=== PATIENT | male | born 1980 ===

== ENCOUNTER 2017-01-11 18:29 | Emergency (ER) | payer BC ==
[2017-01-11 18:44] VITALS: BP 130/90; PULSE 87; RESP 16; TEMP 98; O2SAT 98; BMI 28.8
--- NOTE | 2017-01-11 18:55 | ED PDOC ---
Arrival/HPI - General Chief Complaint: Upper Extremity Problem/Injury Time Seen by Provider: 01/11/17 18:46 Historian: Patient - History of Present Illness Narrative History of Present Illness (Text): 01/11/17 18:52 36yo male present to ED with left wrist pain. States he accidentally dropped 80lbs of weight on his left wrist a week ago. Notes that he applied wrist brace s/p . Came to ED because he had pain with lifting of a pillow or making a fist today without the brace. Did not take any analgesic for the past 5days. Denies focal weakness, paresthesia, any other complaint. Past Medical History - Provider Review Nursing Documentation Reviewed: Yes - Psychiatric Hx Substance Use: No Family/Social History - Physician Review Nursing Documentation Reviewed: Yes Family/Social History: Unknown Family HX Smoking Status: Never Smoked Hx Alcohol Use: Yes Frequency of alcohol use: Socially Hx Substance Use: No Allergies/Home Meds Allergies/Adverse Reactions: Allergies No Known Allergies Allergy (Verified 01/11/17 18:43) Review of Systems - Physician Review All systems were reviewed & negative as marked: Yes - Review of Systems Constitutional: Normal Eyes: Normal ENT: Normal Respiratory: Normal Cardiovascular: Normal Gastrointestinal: Normal Genitourinary Male: Normal Musculoskeletal: Arthralgias (Left wrist) Skin: Normal Neurological: Normal Endocrine: Normal Hemo/Lymphatic: Normal Psychiatric: Normal Physical Exam Vital Signs Reviewed: Yes Vital Signs Temp Pulse Resp BP Pulse Ox 01/11/17 18:42 98.0 F 87 16 130/90 98 Temperature: Afebrile Blood Pressure: Normal Pulse: Regular Respiratory Rate: Normal Appearance: Positive for: Well-Appearing, Non-Toxic, Comfortable Pain Distress: None Mental Status: Positive for: Alert and Oriented X 3 - Systems Exam Head: Present: Atraumatic, Normocephalic Pupils: Present: PERRL Extroacular Muscles: Present: EOMI Conjunctiva: Present: Normal Mouth: Present: Moist Mucous Membranes Neck: Present: Normal Range of Motion Respiratory/Chest: Present: Clear to Auscultation, Good Air Exchange. No: Respiratory Distress, Accessory Muscle Use Cardiovascular: Present: Regular Rate and Rhythm, Normal S1, S2. No: Murmurs Abdomen: Present: Normal Bowel Sounds. No: Tenderness, Distention, Peritoneal Signs Back: Present: Normal Inspection Upper Extremity: Present: Normal ROM (With pain on flexion and extension of wrist), NORMAL PULSES, Neurovascularly Intact, Capillary Refill < 2s, Other ( Strenght 5/5. ). No: Cyanosis, Edema, Tenderness, Swelling, Erythema, Temperature Abnormalties, Deformity Lower Extremity: Present: Normal Inspection. No: Edema Neurological: Present: GCS=15, CN II-XII Intact, Speech Normal Skin: Present: Warm, Dry, Normal Color. No: Rashes Psychiatric: Present: Alert, Oriented x 3, Normal Insight, Normal Concentration Medical Decision Making ED Course and Treatment: 01/11/17 19:27 Left wrist xray - No acute fracture/dislocation noted PT advised that xray will be read officially tomorrow by the radiologist and will be notified if d/f from the given preliminary result He was advised to continue using his wrist brace. Referred to ortho. - RAD Interpretation Radiology Orders: 01/11/17 18:46 WRIST, LEFT 3 VIEWS [RAD] Stat - Medication Orders Current Medication Orders: Discontinued Medications Ibuprofen (Motrin Tab) 600 mg PO STAT STA Stop: 01/11/17 18:56 Last Admin: 01/11/17 19:22 Dose: 600 mg Disposition/Present on Arrival - Present on Arrival Any Indicators Present on Arrival: No History of DVT/PE: No History of Uncontrolled Diabetes: No Urinary Catheter: No History of Decub. Ulcer: No History Surgical Site Infection Following: None - Disposition Have Diagnosis and Disposition been Completed?: Yes Diagnosis: Wrist contusion Disposition: HOME/ ROUTINE Disposition Time: 19:10 Patient Plan: Discharge Patient Problems: Current Active Problems Problem Status Onset Wrist contusion Acute Condition: STABLE Discharge Instructions (ExitCare): Wrist Injury (ED) Additional Instructions: Follow up with your Doctor/Orthopedist Return to ED for any new symptoms Prescriptions: Ibuprofen [Motrin Tab] 600 mg PO Q6 #20 tab Referrals: Tadeo Garvin DO [Staff Provider] - Follow up with primary
--- NOTE | 2017-01-12 08:20 | RAD ---
PROCEDURE: Left Wrist Radiographs. HISTORY: wrist pain s/p trauma COMPARISON: None. FINDINGS: BONES: Normal. No fracture. JOINTS: Normal. No dislocation. SOFT TISSUES: Normal. OTHER FINDINGS: None. IMPRESSION: Normal left wrist radiographs.
== END 2017-01-11 19:30 | disposition home or self-care (01) ==
LOC: ED 18:29
DX: S60.212A Contusion of left wrist, initial encounter (principal); W22.8XXA Striking against or struck by other objects, initial encounter; Y93.89 Activity, other specified; Y92.89 Other specified places as the place of occurrence of the external cause